=== PATIENT | female | born 1960 | race African-American/Black ===

== ENCOUNTER 2024-12-19 18:41 | Emergency (ER) | payer OTHER ==
[~2024-12-19] VITALS: Ht 172.7 cm; Wt 78.0 kg
[2024-12-19 18:46] VITALS: O2SAT 100
[2024-12-19] MEDS: IBUPROFEN 600MG TABLET PO ONE (19:26)
[2024-12-19] MEDS: HYDROCODONE/ACETAMINOPHEN 5/325MG TABLET PO ONE (19:26)
[2024-12-19] MEDS ORDERED: IBUP-2029 MT (19:35)
[2024-12-19 20:30] VITALS: BP 181/96; PULSE 57; RESP 18; TEMP 36.7; O2SAT 100
== END 2024-12-19 20:33 | disposition home or self-care (01) ==
LOC: ER 18:41
DX: S62.304A Unspecified fracture of fourth metacarpal bone, right hand, initial encounter for closed fracture (principal); I10 Essential (primary) hypertension; Z79.899 Other long term (current) drug therapy; V43.52XA Car driver injured in collision with other type car in traffic accident, initial encounter; Y93.89 Activity, other specified; Y92.89 Other specified places as the place of occurrence of the external cause; Y99.8 Other external cause status
CPT/HCPCS: 99284; 73110; 73130; 29125; A6449